=== PATIENT | male | born 1935 | race Caucasian/White ===

== ENCOUNTER 2018-12-31 12:17 | Observation (INO) ==
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
[2018-12-31 12:38] LABS: Hematocrit 43.1 % (37.5-50.1); Hemoglobin 13.6 g/dL (12.9-16.9); Mean Corpuscular HGB Conc 31.6 g/dL (31.6-35.5); Mean Corpuscular Volume 88.9 fL (83.0-100.0); Platelet Count 221 K/mcL (140-400); Red Blood Count 4.85 M/mcL (4.19-5.50); White Blood Count 9.2 K/mcL (4.3-11.1)
[2018-12-31 12:46] LABS: INR 1.6
[2018-12-31 12:49] LABS: Activated Partial Thrombo Time 44.3 Seconds (26.0-36.0)
[2018-12-31 13:01] LABS: Alanine Aminotransferase 14 Units/L (7-52); Albumin 3.9 g/dL (3.5-5.7); Albumin/Globulin Ratio 1.4 (1.1-2.2); Alkaline Phosphatase 72 Units/L (34-104); Aspartate Amino Transferase 20 Units/L (13-39); BUN/Creatinine Ratio 18 (6-26); Bilirubin,Direct 0.1 mg/dL (0.0-0.2); Bilirubin,Indirect 0.4 mg/dL (0.0-1.2); Bilirubin,Total 0.5 mg/dL (0.3-1.0); Blood Urea Nitrogen 32 mg/dL (8-23); Calcium 9.3 mg/dL (8.6-10.3); Carbon Dioxide 27 mEq/L (23-29); Chloride 103 mEq/L (98-107); Globulin 2.7 g/dL (2.4-3.5); Glucose 106 mg/dL (70-105); Osmolality,Calculated 291 (280-300); Potassium 3.9 mEq/L (3.5-5.1); Sodium 137 mEq/L (136-145); Total Protein 6.6 g/dL (6.4-8.9); Troponin I < 0.03 ng/mL (< 0.04); eGFR For African Americans 45 (> 60); eGFR For Non-African Americans 37 (> 60)
[2018-12-31] MEDS ORDERED: Naloxone 0.4 MG/ML INJ IVP PRN (13:43)
[2018-12-31] MEDS ORDERED: traMADol 50 MG TABLET PO PRN (13:43)
[2018-12-31] MEDS ORDERED: Ondansetron 4 MG/2 ML VIAL IVP PRN (13:43)
[2018-12-31] MEDS ORDERED: Acetaminophen 325 MG TABLET PO PRN (13:43)
[2018-12-31] MEDS ORDERED: Mag Hydrox/Al Hydrox/Simeth 30 ML UDC PO PRN (13:43)
[2018-12-31] MEDS ORDERED: MOM Conc 10 ML UD.LIQ PO PRN (13:43)
[2018-12-31] MEDS ORDERED: *HR* Promethazine 25 MG/ML VIAL IVP PRN (13:43)
[2018-12-31 13:46] LABS: Bilirubin,Urine Negative (Negative); Blood,Urine Negative (Negative); Clarity,Urine Clear (Clear); Color,Urine Yellow (Yellow); Glucose,Urine (UA) Normal (Normal); Ketones,Urine Negative (Negative); Leukocyte Esterase,Urine Negative (Negative); Nitrite,Urine Negative (Negative); PH,Urine 5.5 pH Units (5.0-8.0); Protein,Urine 30 mg/dL (Neg-Trace); Specific Gravity,Urine 1.018 (1.010-1.025); Urobilinogen,Urine Normal (Normal)
[2018-12-31 13:49] LABS: Bacteria,Urine None Seen per hpf (None-Few); Hyaline Casts,Urine None Seen per lpf (None-Few); RBC,Urine 0-3 per hpf (0-3); Squamous Epithelial Cell,Urine None Seen per lpf (None-Few); WBC,Urine 0-3 per hpf (0-3)
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
[2019-01-01 01:19] LABS: Basophils % 0.4 %; Eosinophils # 0.1 K/mcL (0.0-0.6); Eosinophils % 1.7 %; Hemoglobin 13.5 g/dL (12.9-16.9); Immature Granulocytes % 0.4 % (0-4); Lymphocytes # 2.6 K/mcL (0.6-4.6); Lymphocytes % 31.2 %; Mean Corpuscular HGB Conc 32.1 g/dL (31.6-35.5); Mean Corpuscular Hemoglobin 28.1 pg (28.0-33.3); Mean Corpuscular Volume 87.3 fL (83.0-100.0); Mean Platelet Volume 9.3 fL (9.4-12.4); Monocytes # 0.8 K/mcL (0.0-1.3); Monocytes % 9.4 %; Neutrophils # 4.8 K/mcL (1.6-8.9); Platelet Count 224 K/mcL (140-400); Red Blood Count 4.81 M/mcL (4.19-5.50); Segmented Neutrophils % 56.9 %; White Blood Count 8.5 K/mcL (4.3-11.1)
[2019-01-01 01:32] LABS: Chol/HDL Ratio 5.8 (0-4.9); Potassium 3.6 mEq/L (3.5-5.1)
--- NOTE | 2019-01-01 06:32 | Electrocardiograph Report ---
[facility] Test Date: 2018-12-31 Pat Name: Henrique Beaulieu Department: EXAM4 Room: 3B45 Gender: M Academic Services Coordinator: : 1935 Requested By: Jake Rainey Order Number: [id number] Reading MD: Derian Keys Measurements Intervals [place] Rate: 73 P: MT: QRS: -48 QRSD: 104 T: 4 QT: 379 QTc: 418 Interpretive Statements Atrial fibrillation Electronically Signed On 01-01-2019 6:31:29 EDT by Derian Keys
[2019-01-01] MEDS ORDERED: Cholecalciferol (D-3) 1,000 UNIT (25MCG) TABLET PO SCH (09:00)
[2019-01-01] MEDS ORDERED: *HR* Rivaroxaban 15 MG TABLET PO SCH (09:00)
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
[2019-01-01] MEDS ORDERED: Aspirin Enteric Coated 325 MG Tablet PO ONE (14:00)
--- NOTE | 2019-01-01 16:25 | EEG/EMG/Oth Biometrics Report ---
EEG Procedure Report Date of procedure: 01/01/19 EEG Procedure: Routine EEG Procedure Note: Report: This EEG was acquired with standard international 10-20 electrode placement system with EKG recording. The Background activity during this EEG was characterized by the presence of posterior dominant alpha rhythm with best frequency up to 8 Hz. The background activity was reactive to eye openings. Sleep stages were not identified during the study There are no electrographic seizures identified during this tracing. There are no epileptiform discharges noted. However, there was intermittent theta/delta slowing at the right hemisphere. Photic stimulation produced no abnormalities. HV not performed during this study. EKG tracing showed no significant cardiac dysarrhythmia. Impression: This is a mildy abnormal EEG due to presence of intermittent focal slowing at the right hemisphere. Clinical Correlation: This EEG is consistent with focal neuronal dysfunction at the right hemisphere. This pattern can be seen in patients with focal cerebral structure abnormalities or less likely as a postictal phenomenon from a partial seizure disorder. Please correlate imaging studies or vascular studies clinically
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
[2019-01-01 18:28] VITALS: BP 142/89
[2019-01-02] MEDS ORDERED: Aspirin Enteric Coated 81 MG Tablet PO SCH (09:00)
== END 2019-01-01 18:49 | disposition home or self-care (01) ==
LOC: 3BNU 12:17 → EMEROOARM 12:17 → 3BNU 15:15
PROVIDERS: ADMIT Student in an Organized Health Care Education/Training Program; ATTEND Student in an Organized Health Care Education/Training Program

== ENCOUNTER 2019-01-04 10:49 | Inpatient (IN) ==
--- NOTE | 2019-01-04 11:12 | Emergency Department Note ---
Disposition Clinical Impression: TIA (transient ischemic attack) CKD (chronic kidney disease) Qualifiers: Chronic kidney disease stage: stage 3 (moderate) Qualified Code(s): N18.3 - Chronic kidney disease, stage 3 (moderate) Carotid stenosis Qualifiers: Laterality: right Qualified Code(s): I65.21 - Occlusion and stenosis of right carotid artery Disposition: Admitted As Inpatient Condition: Fair Forms: ED Satisfaction Letter Time of Disposition: 14:16 General Adult HPI - General Chief complaint: ED Neuro Symptoms/Deficit Stated complaint: confusion Time Seen by Provider: 01/04/19 10:50 Source: patient, family, EMS Mode of arrival: EMS Limitations: no limitations Nursing Notes Reviewed: Yes Vital Signs Reviewed: Yes - History of Present Illness HPI Narrative: Patient is an 83-year-old male that presents emergency department for TIA-like symptoms. Family states that he has had a previous workup for TIA symptoms and was told that he has a 90% blockage in his right carotid artery. They state ayush t they were told that if anything changed to come into the reevaluated. Family states that approximately 9:30 to 10:00 this morning he had symptoms similar to his previous TIA where he had some garbled speech and numbness in his right arm and leg. He states that this is all completely resolved. They also stated that he had some intermittent confusion associated with this. Patient states that he feels significantly better and back to his baseline. Patient's at bedside states that he seems completely normal at this time. Symptoms lasted approximately 30 minutes to an hour. Pain Scale: 0 - Related Data Home Medications Medication Instructions Recorded Confirmed Losartan [Cozaar] 100 mg PO QPM 01/19/15 01/04/19 Cholecalciferol (Vitamin D3) 4,000 unit PO QAM 09/19/18 01/04/19 [Vitamin D3] Omeprazole Magnesium [Prilosec Otc] 20 mg PO QAM 09/19/18 01/04/19 Rivaroxaban [Xarelto] 15 mg PO QPM 09/19/18 01/04/19 Carvedilol [Coreg] 25 mg PO BID 12/31/18 01/04/19 Gabapentin [Neurontin] 100 mg PO BID 12/31/18 01/04/19 amLODIPine [Norvasc] 10 mg PO DAILY 12/31/18 01/04/19 Previous Rx's Medication Instructions Recorded Aspirin Enteric Coated [Aspirin EC] 81 mg PO DAILY #30 tablet. 01/01/19 Atorvastatin [Lipitor] 80 mg PO HS #60 tablet 01/01/19 Allergies Allergy/AdvReac Type Severity Reaction Status Date / Time No Known Allergies Allergy Verified 12/31/18 16:54 All systems ED: reviewed and negative except as stated. Constitutional: Denies: fever Cardiovascular: Denies: chest pain Respiratory: Denies: dyspnea Gastrointestinal: Denies: abdominal pain Neurological: Reports: weakness, numbness, confusion. Denies: paresthesias Past Medical History - Past Medical History Medical history: Reports: arthritis, atrial fibrillation, GERD, hypertension, renal disease, other Surgical history: Reports: appendectomy Psychiatric history: Reports: no psych history - Social History Smoking Status: Former smoker Smokeless Tobacco Status: No Alcohol use: Reports: none Drug use: Reports: none Physical Exam - General Limitations: no limitations General appearance: alert, in no apparent distress - Head Head exam: atraumatic, normocephalic - Eye Eye exam: Present: normal appearance, EOMI - Neck Neck exam: Present: normal inspection, full ROM, trachea midline - Respiratory Respiratory exam: Present: normal lung sounds bilaterally. Absent: respiratory distress, wheezes - Cardiovascular Cardiovascular exam: Present: regular rate, normal rhythm, normal heart sounds, +S1, +S2 - Abdominal Exam Abdominal exam: Present: soft, Non-Tender, normal bowel sounds - Neurological Exam Neurological exam: Present: alert, oriented X3 - Expanded Neurological Exam Patient oriented to: Present: person, place, time Speech: Present: fluid speech Cranial nerves: EOM function (II, III, IV, ): Normal, facial sensation (V): Normal, facial palsy (VII): Normal, gag reflex (IX): Normal, spinal accessory function (XI): Normal, tongue deviation (XII): Normal Cerebellar function: finger to nose: Normal, heel to quinones: Normal Motor strength - LUE: 5/5 Motor strength - RUE: 5/5 Motor strength - LLE: 5/5 Motor strength - RLE: 5/5 Upper motor neuron exam: pronator drift: Absent bilaterally Sensory exam upper extremity: light touch: Normal Sensory exam lower extremity: light touch: Normal Coma Scale Eye Opening: Spontaneous Coma Scale Motor Response: Obeys Commands Coma Scale Verbal Response: Oriented Coma Scale Total: 15 - Psychiatric Psychiatric exam: Present: normal affect, normal mood - Skin Skin exam: Present: warm, dry, intact Course Vital Signs Temperature 98.2 F 01/04/19 10:50 Pulse Rate 59 01/04/19 10:50 Respiratory Rate 18 01/04/19 10:50 Blood Pressure 126/87 01/04/19 10:50 O2 Sat by Pulse Oximetry 98 01/04/19 10:50 Temperature 98.2 F 01/04/19 10:50 Pulse Rate 59 01/04/19 10:50 Respiratory Rate 18 01/04/19 10:50 Blood Pressure 126/87 01/04/19 10:50 O2 Sat by Pulse Oximetry 98 01/04/19 10:50 Oxygen Delivery Oxygen Delivery Room Air Medical Decision Making - MDM Narrative Medical decision making narrative: Due the patient presenting to the emergency department with reports of TIA-like symptoms that have completely resolved and the patient have an NIH of 0 a stroke alert was not called. The patient will go for a head CT. Laboratory testing w ill be obtained. The patient had recently been admitted to the hospital approximately 3 days ago and had an extensive workup for strokelike symptoms. Patient will likely require readmission due to recurrence of his symptoms and a high-grade stenosis that is noted in his right internal carotid. Called and spoke with the on-call vascular surgeon and he has agreed to see the patient in consult. A consult was placed to vascular surgery. Patient's laboratory testing is at his baseline with a negative head CT. We will admit the patient to the medical service. I spoke with the admitting hospitals Dr. Thomas and she has accepted the patient to their service. Patient be admitted to the [facility] at this time for further evaluation and management. - Medical Records Medical records reviewed: Yes I reviewed the patient's medical records. - Lab Data Lab results reviewed: Yes I reviewed the patient's lab results. Result diagrams: 01/04/19 11:04 01/04/19 11:04 Lab Results 01/04/19 01/04/19 01/04/19 Range/Units 11:04 11:04 11:04 WBC 9.0 (4.3-11.1) K/mcL RBC 4.88 (4.19-5.50) M/mcL Hgb 13.8 (12.9-16.9) g/dL Hct 43.0 (37.5-50.1) % MCV 88.1 (83.0-100.0) fL MCH 28.3 (28.0-33.3) pg MCHC 32.1 (31.6-35.5) g/dL RDW 15.0 H (11.5-14.5) % Plt Count 230 (140-400) K/mcL MPV 9.2 L (9.4-12.4) fL PT 18.5 H (9.4-12.1) Seconds INR 1.6 APTT 42.5 H (26.0-36.0) Seconds Sodium 136 (136-145) mEq/L Potassium 4.0 (3.5-5.1) mEq/L Chloride 106 (98-107) mEq/L Carbon Dioxide 22 L (23-29) mEq/L BUN 21 (8-23) mg/dL Creatinine 1.61 H (0.70-1.30) mg/dL Est GFR ( Amer) 50 L (> 60) Est GFR (Non-Af Amer) 41 L (> 60) BUN/Creatinine Ratio 13 (6-26) Glucose 94 (70-105) mg/dL Calculated Osmolality 285 (280-300) Calcium 9.1 (8.6-10.3) mg/dL Troponin I < 0.03 (< 0.04) ng/mL Urine Color (Yellow) Urine Clarity (Clear) Urine pH (5.0-8.0) pH Units Ur Specific [place] (1.010-1.025) Urine Protein (Neg-Trace) mg/dL Urine Glucose (UA) (Normal) mg/dL Urine Ketones (Negative) mg/dL Urine Blood (Negative) Urine Nitrite (Negative) Urine Bilirubin (Negative) Urine Urobilinogen (Normal) mg/dL Ur Leukocyte Esterase (Negative) Urine Microscopic RBC (0-3) per hpf Urine Microscopic WBC (0-3) per hpf Ur Squamous Epith Cells (None-Few) per lpf Urine Bacteria (None-Few) per hpf Hyaline Casts (None-Few) per lpf Ur Culture Indicated? (NO) 01/04/19 Range/Units 12:22 WBC (4.3-11.1) K/mcL RBC (4.19-5.50) M/mcL Hgb (12.9-16.9) g/dL Hct (37.5-50.1) % MCV (83.0-100.0) fL MCH (28.0-33.3) pg MCHC (31.6-35.5) g/dL RDW (11.5-14.5) % Plt Count (140-400) K/mcL MPV (9.4-12.4) fL PT (9.4-12.1) Seconds INR APTT (26.0-36.0) Seconds Sodium (136-145) mEq/L Potassium (3.5-5.1) mEq/L Chloride (98-107) mEq/L Carbon Dioxide (23-29) mEq/L BUN (8-23) mg/dL Creatinine (0.70-1.30) mg/dL Est GFR ( Amer) (> 60) Est GFR (Non-Af Amer) (> 60) BUN/Creatinine Ratio (6-26) Glucose (70-105) mg/dL Calculated Osmolality (280-300) Calcium (8.6-10.3) mg/dL Troponin I (< 0.04) ng/mL Urine Color Yellow (Yellow) Urine Clarity Clear (Clear) Urine pH 5.5 (5.0-8.0) pH Units Ur Specific [place] 1.016 (1.010-1.025) Urine Protein 100 H (Neg-Trace) mg/dL Urine Glucose (UA) Normal (Normal) mg/dL Urine Ketones Negative (Negative) mg/dL Urine Blood Negative (Negative) Urine Nitrite Negative (Negative) Urine Bilirubin Negative (Negative) Urine Urobilinogen Normal (Normal) mg/dL Ur Leukocyte Esterase Trace H (Negative) Urine Microscopic RBC 0-3 (0-3) per hpf Urine Microscopic WBC 3-5 H (0-3) per hpf Ur Squamous Epith Cells Moderate H (None-Few) per lpf Urine Bacteria None Seen (None-Few) per hpf Hyaline Casts None Seen (None-Few) per lpf Ur Culture Indicated? YES A (NO) - Radiology Data Radiology results reviewed: Yes I reviewed the patient's radiology results. Head CT 01/04/19 11:04 IMPRESSION: No acute intracranial abnormality. D/ / Tyree Sofia MD / Tyree Sofia MD Interpreting Provider: Tyree Sofia MD - EKG Data EKG #1 EKG attestation: Yes I reviewed and interpreted this EKG. EKG results narrative: EKG shows atrial fibrillation at a rate of 54 bpm, curious duration 104, QTc of 358. There is no evidence of STEMI on EKG. This is compared to previous EKG on 12/31/18. Attestation Statement - Attestation Attestation: Silva Benson D.O., examined this patient and my medical decision-making was reviewed with the Resident Physician. I agree with the documented findings, disposition and treatment plan as described except to the extent set forth below. NIH Stroke Scale - Level of Consciousness LOC: Alert - LOC Questions LOC Questions: Answers both correctly - LOC Commands LOC Commands: Performs both correctly - Best Gaze Best Gaze: Normal - Visual Visual: No visual loss - Facial Palsy Facial Palsy: Normal - Motor Arms Motor Arm-Left: No drift for 10 seconds Motor Arm-Right: No drift for 10 seconds - Motor Legs Motor Leg-Left: No drift for 5 seconds Motor Leg-Right: No drift for 5 seconds - Limb Ataxia Limb Ataxia: Normal, No Ataxia - Sensory Sensory: Normal - Best Language Best Language: No aphasia - Dysarthria Dysarthria: Normal - Extinction and Inattention Extinction and Inattention: Normal - NIHSS Total Score NIHSS Total Score: 0
--- NOTE | 2019-01-04 11:36 | Emergency Department Note ---
Disposition Clinical Impression: TIA (transient ischemic attack) CKD (chronic kidney disease) Qualifiers: Chronic kidney disease stage: stage 3 (moderate) Qualified Code(s): N18.3 - Chronic kidney disease, stage 3 (moderate) Carotid stenosis Qualifiers: Laterality: right Qualified Code(s): I65.21 - Occlusion and stenosis of right carotid artery Disposition: Admitted As Inpatient Condition: Fair Referrals: Esteban Moctezuma DO [Primary Care Provider] - Forms: ED Satisfaction Letter Time of Disposition: 14:18 General Adult HPI - General Chief complaint: ED Neuro Symptoms/Deficit Stated complaint: confusion Time Seen by Provider: 01/04/19 10:50 Source: patient, family, EMS Mode of arrival: EMS Limitations: no limitations - History of Present Illness Pain Scale: 0 - Related Data Home Medications Medication Instructions Recorded Confirmed Losartan [Cozaar] 100 mg PO QPM 01/19/15 01/04/19 Cholecalciferol (Vitamin D3) 4,000 unit PO QAM 09/19/18 01/04/19 [Vitamin D3] Omeprazole Magnesium [Prilosec Otc] 20 mg PO QAM 09/19/18 01/04/19 Rivaroxaban [Xarelto] 15 mg PO QPM 09/19/18 01/04/19 Carvedilol [Coreg] 25 mg PO BID 12/31/18 01/04/19 Gabapentin [Neurontin] 100 mg PO BID 12/31/18 01/04/19 amLODIPine [Norvasc] 10 mg PO DAILY 12/31/18 01/04/19 Previous Rx's Medication Instructions Recorded Aspirin Enteric Coated [Aspirin EC] 81 mg PO DAILY #30 tablet. 01/01/19 Atorvastatin [Lipitor] 80 mg PO HS #60 tablet 01/01/19 Allergies Allergy/AdvReac Type Severity Reaction Status Date / Time No Known Allergies Allergy Verified 12/31/18 16:54 Constitutional: Denies: fever Cardiovascular: Denies: chest pain Respiratory: Denies: dyspnea Gastrointestinal: Denies: abdominal pain Neurological: Reports: weakness, numbness, confusion. Denies: paresthesias Past Medical History - Past Medical History Medical history: Reports: arthritis, atrial fibrillation, GERD, hypertension, renal disease, other Surgical history: Reports: appendectomy Psychiatric history: Reports: no psych history - Social History Smoking Status: Former smoker Smokeless Tobacco Status: No Alcohol use: Reports: none Drug use: Reports: none Physical Exam - General Limitations: no limitations General appearance: alert, in no apparent distress Course Vital Signs Temperature 98.2 F 01/04/19 10:50 Pulse Rate 59 01/04/19 10:50 Respiratory Rate 18 01/04/19 10:50 Blood Pressure 126/87 01/04/19 10:50 O2 Sat by Pulse Oximetry 98 01/04/19 10:50 Temperature 98.2 F 01/04/19 10:50 Pulse Rate 59 01/04/19 10:50 Respiratory Rate 18 01/04/19 10:50 Blood Pressure 126/87 01/04/19 10:50 O2 Sat by Pulse Oximetry 98 01/04/19 10:50 Oxygen Delivery Oxygen Delivery Room Air Medical Decision Making - Lab Data Result diagrams: 01/04/19 11:04 01/04/19 11:04 Lab Results 01/04/19 01/04/19 01/04/19 Range/Units 11:04 11:04 11:04 WBC 9.0 (4.3-11.1) K/mcL RBC 4.88 (4.19-5.50) M/mcL Hgb 13.8 (12.9-16.9) g/dL Hct 43.0 (37.5-50.1) % MCV 88.1 (83.0-100.0) fL MCH 28.3 (28.0-33.3) pg MCHC 32.1 (31.6-35.5) g/dL RDW 15.0 H (11.5-14.5) % Plt Count 230 (140-400) K/mcL MPV 9.2 L (9.4-12.4) fL PT 18.5 H (9.4-12.1) Seconds INR 1.6 APTT 42.5 H (26.0-36.0) Seconds Sodium 136 (136-145) mEq/L Potassium 4.0 (3.5-5.1) mEq/L Chloride 106 (98-107) mEq/L Carbon Dioxide 22 L (23-29) mEq/L BUN 21 (8-23) mg/dL Creatinine 1.61 H (0.70-1.30) mg/dL Est GFR ( Amer) 50 L (> 60) Est GFR (Non-Af Amer) 41 L (> 60) BUN/Creatinine Ratio 13 (6-26) Glucose 94 (70-105) mg/dL Calculated Osmolality 285 (280-300) Calcium 9.1 (8.6-10.3) mg/dL Troponin I < 0.03 (< 0.04) ng/mL Urine Color (Yellow) Urine Clarity (Clear) Urine pH (5.0-8.0) pH Units Ur Specific [place]ell (1.010-1.025) Urine Protein (Neg-Trace) mg/dL Urine Glucose (UA) (Normal) mg/dL Urine Ketones (Negative) mg/dL Urine Blood (Negative) Urine Nitrite (Negative) Urine Bilirubin (Negative) Urine Urobilinogen (Normal) mg/dL Ur Leukocyte Esterase (Negative) Urine Microscopic RBC (0-3) per hpf Urine Microscopic WBC (0-3) per hpf Ur Squamous Epith Cells (None-Few) per lpf Urine Bacteria (None-Few) per hpf Hyaline Casts (None-Few) per lpf Ur Culture Indicated? (NO) 01/04/19 Range/Units 12:22 WBC (4.3-11.1) K/mcL RBC (4.19-5.50) M/mcL Hgb (12.9-16.9) g/dL Hct (37.5-50.1) % MCV (83.0-100.0) fL MCH (28.0-33.3) pg MCHC (31.6-35.5) g/dL RDW (11.5-14.5) % Plt Count (140-400) K/mcL MPV (9.4-12.4) fL PT (9.4-12.1) Seconds INR APTT (26.0-36.0) Seconds Sodium (136-145) mEq/L Potassium (3.5-5.1) mEq/L Chloride (98-107) mEq/L Carbon Dioxide (23-29) mEq/L BUN (8-23) mg/dL Creatinine (0.70-1.30) mg/dL Est GFR ( Amer) (> 60) Est GFR (Non-Af Amer) (> 60) BUN/Creatinine Ratio (6-26) Glucose (70-105) mg/dL Calculated Osmolality (280-300) Calcium (8.6-10.3) mg/dL Troponin I (< 0.04) ng/mL Urine Color Yellow (Yellow) Urine Clarity Clear (Clear) Urine pH 5.5 (5.0-8.0) pH Units Ur Specific [place]ell 1.016 (1.010-1.025) Urine Protein 100 H (Neg-Trace) mg/dL Urine Glucose (UA) Normal (Normal) mg/dL Urine Ketones Negative (Negative) mg/dL Urine Blood Negative (Negative) Urine Nitrite Negative (Negative) Urine Bilirubin Negative (Negative) Urine Urobilinogen Normal (Normal) mg/dL Ur Leukocyte Esterase Trace H (Negative) Urine Microscopic RBC 0-3 (0-3) per hpf Urine Microscopic WBC 3-5 H (0-3) per hpf Ur Squamous Epith Cells Moderate H (None-Few) per lpf Urine Bacteria None Seen (None-Few) per hpf Hyaline Casts None Seen (None-Few) per lpf Ur Culture Indicated? YES A (NO) Attestation Statement - Attestation Attestation: Silva Benson D.O., examined this patient and my medical decision-making was reviewed with the Resident Physician. I agree with the documented findings, disposition and treatment plan as described except to the extent set forth below. 83-year-old male presenting with concern for TIA symptoms. He was recently admitted and had a full evaluation and discharged home. They found some stenosis at that time. He presents again today complaints that for approximately 15 minutes his speech was abnormal with facial droop as well as numbness in his right arm and right leg. The symptoms resolved prior to arrival and have not returned. Denies a prior history of CVA. No recent illnesses. Feels at baseline at this time. No other complaints. General: Alert, no acute distress HENT: Normocephalic, Atraumatic Neck: No JVD Cardiovascular: Regular rate and rhythm. No appreciable murmurs Respiratory: Lungs CTAB. No wheezing/rhonchi Abdominal: Soft, non tender. No peritoneal findings Extremities: No peripheral edema Neuro: Alert, Mentating appropriately, No focal deficits. Cranial nerves II through XII grossly intact. He has equal motor strength in the upper and lower extremities. Sensation to light touch intact in the upper and lower extremitie s. Skin: Warm, Dry Plan: Repeat head CT, EKG, labs and likely admission for neuro checks given his transient neurologic deficits. ED Procedure Note: EKG interpretation - I agree with the resident physician's documentation and interpretation of the patient's EKG. Atrial fibrillation with a rate of 54 beats or minute. Left axis deviation. Normal intervals. No gross ST elevations or depressions. No acute ischemic findings. Imaging labs reviewed. No gross abnormalities. The patient will be admitted for neuro checks. At the request of the hospitalist the vascular surgeon was consulted and will see the patient in consultation given his prior atherosclerosis.
[2019-01-04 12:09] LABS: Hemoglobin 13.8 g/dL (12.9-16.9); Mean Corpuscular HGB Conc 32.1 g/dL (31.6-35.5); Mean Corpuscular Hemoglobin 28.3 pg (28.0-33.3); Mean Corpuscular Volume 88.1 fL (83.0-100.0); Mean Platelet Volume 9.2 fL (9.4-12.4); Platelet Count 230 K/mcL (140-400); Red Blood Count 4.88 M/mcL (4.19-5.50)
[2019-01-04 12:17] LABS: INR 1.6; Prothrombin Time 18.5 Seconds (9.4-12.1)
[2019-01-04 12:20] LABS: Activated Partial Thrombo Time 42.5 Seconds (26.0-36.0)
[2019-01-04 12:21] LABS: BUN/Creatinine Ratio 13 (6-26); Blood Urea Nitrogen 21 mg/dL (8-23); Calcium 9.1 mg/dL (8.6-10.3); Carbon Dioxide 22 mEq/L (23-29); Chloride 106 mEq/L (98-107); Glucose 94 mg/dL (70-105); Osmolality,Calculated 285 (280-300); Sodium 136 mEq/L (136-145); Troponin I < 0.03 ng/mL (< 0.04); eGFR For African Americans 50 (> 60); eGFR For Non-African Americans 41 (> 60)
[2019-01-04 12:40] LABS: Bilirubin,Urine Negative (Negative); Blood,Urine Negative (Negative); Clarity,Urine Clear (Clear); Color,Urine Yellow (Yellow); Glucose,Urine (UA) Normal (Normal); Ketones,Urine Negative (Negative); Leukocyte Esterase,Urine Trace (Negative); Nitrite,Urine Negative (Negative); PH,Urine 5.5 pH Units (5.0-8.0); Protein,Urine 100 mg/dL (Neg-Trace); Specific Gravity,Urine 1.016 (1.010-1.025); Urobilinogen,Urine Normal (Normal)
[2019-01-04 12:42] LABS: Bacteria,Urine None Seen per hpf (None-Few); Hyaline Casts,Urine None Seen per lpf (None-Few); RBC,Urine 0-3 per hpf (0-3); Squamous Epithelial Cell,Urine Moderate per lpf (None-Few)
[2019-01-04] MEDS ORDERED: Mag Hydrox/Al Hydrox/Simeth 30 ML UDC PO PRN (15:17)
[2019-01-04] MEDS ORDERED: Ondansetron 4 MG/2 ML VIAL IVP PRN (15:17)
[2019-01-04] MEDS ORDERED: MOM Conc 10 ML UD.LIQ PO PRN (15:17)
[2019-01-04] MEDS ORDERED: *HR* Promethazine 25 MG/ML VIAL IVP PRN (15:17)
[2019-01-04] MEDS ORDERED: traMADol 50 MG TABLET PO PRN (15:17)
[2019-01-04] MEDS ORDERED: Acetaminophen 325 MG TABLET PO PRN (15:17)
[2019-01-04] MEDS ORDERED: Naloxone 0.4 MG/ML INJ IVP PRN (15:17)
--- NOTE | 2019-01-04 15:25 | Internal Med History&Physical ---
Date of Encounter: 01/04/19 Time of Encounter: 15:40 Internal Medicine - H&P: HPI Admitted From: Home Plans for Post Hospital Care: Home History of present illness: Mr. Beaulieu is a 83 year old male with past medical history of hypertension, hyperlipidemia, chronic atrial fibrillation, chronic kidney disease, and recently diagnosed severe right-sided carotid stenosis resulting in TIA symptoms or present to the ED with transient aphasia, slurred speech, and left-sided weakness and numbness. Patient was admitted 4 days ago for TIA symptoms, at that point neurological workup revealed 80-99% stenosis of the right ICA, MRI of brain no acute CVA. Vascular surgery was consult it, recommended outpatient angiogram and a possible right-sided carotid endarterectomy. Patient was discharged 3 days ago, aspirin and statins were prescribed. Patient and family reported this morning he suddenly developed slurred speech associated with left- sided weakness and numbness. The symptoms lasted about 15 minutes ago and resolved. By the time patient arrival to the ED, neurologic exam were normal. Vascular surgery was consulted again, patient will be admitted for further evaluation and management. CODE STATUS will be full cold. Past Med Surg Social Fam HX - Past Medical History Medical history: arthritis, atrial fibrillation, GERD, hypertension, renal disease, other Additional medical history: STAGE 3 CKD. BELLS PALSY. BPH Psychiatric history: no psych history - Past Surgical History Surgical History: appendectomy Additional surgical history: spinal surgery - Social History Smoking Status: Former smoker Smokeless Tobacco Status: No Alcohol use: none Drug use: none - Family History Mother Adopted: No Family Member Ethnicity: Non- Living Status: Hx Family Neuromuscular Disorders: Yes (BELLS PALSY) Internal Medicine - H&P: Meds Losartan [Cozaar] 100 mg PO QPM 01/19/15 [History] Cholecalciferol (Vitamin D3) [Vitamin D3] 4,000 unit PO QAM 09/19/18 [History] Omeprazole Magnesium [Prilosec Otc] 20 mg PO QAM 09/19/18 [History] Rivaroxaban [Xarelto] 15 mg PO QPM 09/19/18 [History] Carvedilol [Coreg] 25 mg PO BID 12/31/18 [History] Gabapentin [Neurontin] 100 mg PO BID 12/31/18 [History] amLODIPine [Norvasc] 10 mg PO DAILY 12/31/18 [History] Aspirin Enteric Coated [Aspirin EC] 81 mg PO DAILY #30 tablet. 01/01/19 [Rx] Atorvastatin [Lipitor] 80 mg PO HS #60 tablet 01/01/19 [Rx] Allergy/AdvReac Type Severity Reaction Status Date / Time No Known Allergies Allergy Verified 12/31/18 16:54 All Systems PM: A 10-system review of systems was performed and is negative for pertinent findings except as documented above in the HPI. Review of systems: REVIEW OF SYSTEMS: CONSTITUTIONAL: No weight loss, fever, chills, weakness or fatigue. HEENT: Eyes: No visual loss, blurred vision, double vision or yellow sclerae. Ears, Nose, Throat: No hearing loss, sneezing, congestion, runny nose or sore throat. SKIN: No rash or itching. CARDIOVASCULAR: No chest pain, chest pressure or chest discomfort. No palpitations or edema. RESPIRATORY: No shortness of breath, cough or sputum. GASTROINTESTINAL: No anorexia, nausea, vomiting or diarrhea. No abdominal pain or blood. GENITOURINARY: No dysuria, urgency, or frequency. NEUROLOGICAL: see HPI. MUSCULOSKELETAL: No muscle, back pain, joint pain or stiffness. HEMATOLOGIC: No anemia, bleeding or bruising. LYMPHATICS: No enlarged nodes. No history of splenectomy. PSYCHIATRIC: No history of depression or anxiety. ENDOCRINOLOGIC: No reports of sweating, cold or heat intolerance. No polyuria or polydipsia. - Constitutional Vitals: Temp Pulse Resp BP Pulse Ox 98.2 F 65 17 181/109 99 01/04/19 10:50 01/04/19 14:05 01/04/19 14:56 01/04/19 14:56 01/04/19 14:05 General appearance: Present: A&O X 3 Exam: PHYSICAL EXAMINATION: GENERAL APPEARANCE: The patient is alert, oriented and in no acute distress. HEENT: Head is normocephalic. The sinuses are nontender. Pupils are equal and reactive. The nares are patent. Oropharynx clear without lesions. NECK: Supple without lymphadenopathy. HEART: Regular rate and rhythm. LUNGS: No crackles or wheezes are heard. ABDOMEN: Soft, nontender, nondistended with good bowel sounds heard. Inguinal area is normal. EXTREMITIES: Without cyanosis, clubbing or edema. NEUROLOGICAL: Gross nonfocal. SKIN: Warm and dry without any rash. Internal Med - H&P Results - Labs CBC & Chem 7: 01/04/19 11:04 01/04/19 11:04 Labs: Short CBC 01/04/19 Range/Units 11:04 WBC 9.0 (4.3-11.1) K/mcL Hgb 13.8 (12.9-16.9) g/dL Hct 43.0 (37.5-50.1) % Plt Count 230 (140-400) K/mcL BMP 01/04/19 11:04 Sodium 136 Potassium 4.0 Chloride 106 Carbon Dioxide 22 L BUN 21 Creatinine 1.61 H Glucose 94 Calcium 9.1 Cardiac Enzymes 01/04/19 Range/Units 11:04 Troponin I < 0.03 (< 0.04) ng/mL Urine 01/04/19 Range/Units 12:22 Urine Color Yellow (Yellow) Urine Clarity Clear (Clear) Urine pH 5.5 (5.0-8.0) pH Units Ur Specific [place] 1.016 (1.010-1.025) Urine Protein 100 H (Neg-Trace) mg/dL Urine Glucose (UA) Normal (Normal) mg/dL - Impressions ITS Impressions Head CT 01/04/19 11:04 IMPRESSION: No acute intracranial abnormality. D/ / Tyree Sofia MD / Tyree Sofia MD Interpreting Provider: Tyree Sofia MD - Assessment and Plan (1) TIA (transient ischemic attack) Current Visit: Yes Status: Acute Assessment and plan: TIA symptoms most likely caused by severe stenosis of right ICA. Currently patient neurologically stable and the neuro exam negative. We will continue monitoring neurological symptoms. Vascular surgery consult, recommended right-sided carotid endarterectomy, hold anticoagulation, continue aspirin, started patient on heparin drip. (2) Carotid artery stenosis, symptomatic Current Visit: Yes Status: Acute Assessment and plan: Management same as above. Qualifiers: Laterality: right Qualified Code(s): I65.21 - Occlusion and stenosis of right carotid artery (3) Essential (primary) hypertension Current Visit: No Status: Chronic Assessment and plan: BP controlled, continue home medication. (4) CKD (chronic kidney disease) Current Visit: Yes Status: Acute Assessment and plan: Creatinine at the baseline, avoid nephrotoxic agent, continue monitoring renal function. Qualifiers: Chronic kidney disease stage: stage 3 (moderate) Qualified Code(s): N18.3 - Chronic kidney disease, stage 3 (moderate) (5) Atrial fibrillation Current Visit: No Status: Chronic Assessment and plan: Rate controlled, continue beta aileen. Hold Xarelto, started patient on heparin drip per vascular surgery recommendation. Qualifiers: Atrial fibrillation type: chronic Qualified Code(s): I48.2 - Chronic atrial fibrillation (6) DVT prophylaxis Current Visit: Yes Status: Acute Assessment and plan: Patient on heparin drip. - Time Spent With Patient Total time spent is greater than 50% in coordination of care (as documented) at patient's floor/unit and/or counseling patient: Greater than 35 minutes
--- NOTE | 2019-01-04 15:31 | Vascular/Endovasc Consult Note ---
Date of Encounter: 01/04/19 Time of Encounter: 15:00 Assessment and Plan (1) Carotid artery stenosis, symptomatic Current Visit: Yes Status: Acute The pathophysiology and natural history of carotid stenosis was discussed with the patient and all questions were answered. The patient has a symptomatic right internal carotid artery 80-99% stenosis. The patient has had 2 separate transient ischemic attacks within the last week will anticoagulated. At this time he has no focal neurologic deficits. His carotid duplex reveals an 80-99% stenosis. His MRA reveals a greater than 90% right internal carotid artery stenosis. His recent EEG was abnormal in the right hemisphere. Given these findings a right carotid endarterectomy is recommended. The risks, benefits and alternatives were discussed the patient and his family all questions were answered. He states understanding wishes to proceed. The patient will continue with daily aspirin including on the morning of surgery. Continue to hold his anticoagulation. Recommend an intravenous heparin drip until surgery can be performed tomorrow morning. The patient takes Xarelto in the evening so his heparin will begin this evening. An order for an intravenous heparin drip has been placed. Qualifiers: Qualified Code(s): I65.21 - Occlusion and stenosis of right carotid artery (2) CKD (chronic kidney disease) stage 3, GFR 30-59 ml/min Current Visit: No Status: Chronic (3) TIA (transient ischemic attack) Current Visit: Yes Status: Acute (4) Atrial fibrillation Current Visit: No Status: Chronic The patient is chronically anticoagulated with Xarelto. Xarelto be held at this time due to pending carotid surgery. Qualifiers: Qualified Code(s): I48.2 - Chronic atrial fibrillation (5) Essential (primary) hypertension Current Visit: No Status: Chronic The patient was counseled regarding atherosclerotic risk factor reduction. - History of Present Illness Consult date: 01/04/19 Requesting physician: Sascha Oconnor Consult reason: Symptomatic right internal carotid artery stenosis Chief complaint: Right hemispheric transient ischemic attack History of present illness: Mr. Beaulieu is a 83 year old male with history of carotid stenosis, hypertension, sleep apnea, chronic kidney disease and a fibrillation. The patient presented on 12/31/2018 to [facility] with complaints of a speech defic it. He underwent a carotid duplex which revealed an 80-99% right internal carotid stenosis. He then underwent an MRA which revealed a greater than 90% stenosis of the right internal carotid artery. He also underwent an EEG which revealed focal slowing of the right hemisphere. Neurology noted that this was likely a result of underlying ischemia related to severe right carotid artery stenosis. The patient was ultimately discharged to home due to resolution of the deficit with plans for further evaluation as an outpatient. He will return to the [facility] today with symptoms of left upper extremity paresthesias and weakness. Ports the symptoms resolved spontaneously. The patient has been admitted to the hospitalist service. Vascular surgery was counseled for further evaluation. At the time of examination, the patient is alert and oriented. Denies any active signs of CVA, TIA or amaurosis fugax. He denies chest pain or shortness of breath. Past Med Surg Social Fam HX - Past Medical History Medical history: arthritis, atrial fibrillation, GERD, hypertension, renal disease, other Additional medical history: STAGE 3 CKD. BELLS PALSY. BPH Psychiatric history: no psych history - Past Surgical History Surgical History: appendectomy Additional surgical history: spinal surgery - Social History Smoking Status: Former smoker Smokeless Tobacco Status: No Alcohol use: none Drug use: none - Family History Mother Adopted: No Family Member Ethnicity: Non- Living Status: Hx Family Neuromuscular Disorders: Yes (BELLS PALSY) Father Living Status: Hx Family Respiratory Disorders: Yes Medications and Allergies Losartan [Cozaar] 100 mg PO QPM 01/19/15 [History] Cholecalciferol (Vitamin D3) [Vitamin D3] 4,000 unit PO QAM 09/19/18 [History] Omeprazole Magnesium [Prilosec Otc] 20 mg PO QAM 09/19/18 [History] Rivaroxaban [Xarelto] 15 mg PO QPM 09/19/18 [History] Carvedilol [Coreg] 25 mg PO BID 12/31/18 [History] Gabapentin [Neurontin] 100 mg PO BID 12/31/18 [History] amLODIPine [Norvasc] 10 mg PO DAILY 12/31/18 [History] Aspirin Enteric Coated [Aspirin EC] 81 mg PO DAILY #30 tablet. 01/01/19 [Rx] Atorvastatin [Lipitor] 80 mg PO HS #60 tablet 01/01/19 [Rx] Allergy/AdvReac Type Severity Reaction Status Date / Time No Known Allergies Allergy Verified 12/31/18 16:54 All Systems Review: The remainder of the systems were reviewed and are negative Exam Vital Signs, Last 4 Hours Pulse Resp BP Pulse Ox 01/04/19 14:56 17 181/109 01/04/19 14:05 65 17 171/105 99 01/04/19 13:05 68 15 160/100 97 01/04/19 12:05 73 15 138/99 97 General: Present: Conversant, No Apparent Distress HEENT: Present: Pupils equal Neck: Present: Right Carotid bruit. Absent: JVD, Lymphadenopathy, Left Carotid bruit Cardiac: Present: Irregular Rhythm Lungs: Present: Normal Breath Sounds, No Wheeze, Rales, Rhonchi Neuro: Present: Alert and responsive, No focal deficits noted, Cranial nerves grossly intact, Motor nerves grossly intact, Sensory nerves grossly intact Abdomen: Present: Soft, Non-tender. Absent: Masses Vascular: Present: Normal capillary refill. Absent: Cyanosis, Edema Skin: Present: No rashes noted on visualized skin Consult Discharge Plan - Plan Referrals: Esteban Moctezuma DO [Primary Care Provider] -
[2019-01-04 16:52] LABS: Hematocrit 44.6 % (37.5-50.1); Hemoglobin 14.2 g/dL (12.9-16.9); Mean Corpuscular HGB Conc 31.8 g/dL (31.6-35.5); Mean Corpuscular Hemoglobin 28.7 pg (28.0-33.3); Mean Corpuscular Volume 90.3 fL (83.0-100.0); Mean Platelet Volume 8.9 fL (9.4-12.4); Platelet Count 218 K/mcL (140-400); Red Blood Count 4.94 M/mcL (4.19-5.50); White Blood Count 8.5 K/mcL (4.3-11.1)
[2019-01-04 17:19] LABS: Heparin anti-factor XA UFH 0.49 IU/mL (0.30-0.70)
[2019-01-04 17:20] LABS: INR 1.5; Prothrombin Time 16.7 Seconds (9.4-12.1)
[2019-01-04] MEDS ORDERED: *HR* Rivaroxaban 15 MG TABLET PO SCH (18:00)
[2019-01-04] MEDS ORDERED: *HR* Heparin 5,000 UNIT/ML VIAL IVP PRN ×2 (18:00)
[2019-01-04] MEDS ORDERED: *HR* Heparin 5,000 UNIT/ML VIAL IVP ONE (18:00)
[2019-01-04] MEDS ORDERED: Heparin 25,000 UNIT/250 ML D5W 25,000 UNIT/250 ML IV.SOLN IVC SCH (18:00)
[2019-01-04] MEDS: Gabapentin 100 MG CAPSULE PO SCH (19:53)
[2019-01-05 00:57] LABS: Basophils % 0.3 %; Eosinophils # 0.2 K/mcL (0.0-0.6); Eosinophils % 1.8 %; Hematocrit 42.9 % (37.5-50.1); Hemoglobin 13.7 g/dL (12.9-16.9); Immature Granulocytes % 0.4 % (0-4); Lymphocytes # 3.2 K/mcL (0.6-4.6); Mean Corpuscular HGB Conc 31.9 g/dL (31.6-35.5); Mean Corpuscular Hemoglobin 28.5 pg (28.0-33.3); Mean Corpuscular Volume 89.2 fL (83.0-100.0); Mean Platelet Volume 9.1 fL (9.4-12.4); Monocytes # 0.7 K/mcL (0.0-1.3); Monocytes % 7.4 %; Neutrophils # 5.6 K/mcL (1.6-8.9); Platelet Count 212 K/mcL (140-400); Red Blood Count 4.81 M/mcL (4.19-5.50); Segmented Neutrophils % 57.1 %; White Blood Count 9.8 K/mcL (4.3-11.1)
[2019-01-05 01:15] LABS: Potassium 3.7 mEq/L (3.5-5.1)
[2019-01-05] MEDS: Gabapentin 100 MG CAPSULE PO SCH ×2 (08:16→20:10)
[2019-01-05] MEDS ORDERED: Cholecalciferol (D-3) 1,000 UNIT (25MCG) TABLET PO SCH (09:00)
[2019-01-05] MEDS ORDERED: Aspirin Enteric Coated 81 MG Tablet PO SCH (09:00)
[2019-01-05] MEDS ORDERED: Vancomycin 1,000 MG, Sodium Chloride IRRigation 1,000 ML IR ONE (09:00)
[2019-01-05] MEDS ORDERED: amLODIPine 5 MG TABLET PO SCH (09:00)
--- NOTE | 2019-01-05 10:27 | Anesthesia Evaluation PreOp ---
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 History: TIA, Other (Lion's Palsy) Other Medical History: Renal (CKD Stage 3), GERD Anesthesia History: No Prior Anesthetic Complications Alcohol Use: none Drug use: none Medications and Allergies Losartan [Cozaar] 100 mg PO QPM 01/19/15 [History] Cholecalciferol (Vitamin D3) [Vitamin D3] 4,000 unit PO QAM 09/19/18 [History] Omeprazole Magnesium [Prilosec Otc] 20 mg PO QAM 09/19/18 [History] Rivaroxaban [Xarelto] 15 mg PO QPM 09/19/18 [History] Carvedilol [Coreg] 25 mg PO BID 12/31/18 [History] Gabapentin [Neurontin] 100 mg PO BID 12/31/18 [History] amLODIPine [Norvasc] 10 mg PO DAILY 12/31/18 [History] Aspirin Enteric Coated [Aspirin EC] 81 mg PO DAILY #30 tablet. 01/01/19 [Rx] Atorvastatin [Lipitor] 80 mg PO HS #60 tablet 01/01/19 [Rx] Allergy/AdvReac Type Severity Reaction Status Date / Time No Known Allergies Allergy Verified 12/31/18 16:54 - Meds/Allergy Pre-op Review Medications Reviewed: Yes Allergies Reviewed: Yes Beta Blockers on Current Med List: Yes (Coreg today) Anesthesia Results - Labs 01/05/19 00:39 01/05/19 00:39 Laboratory Tests 01/04/19 01/04/19 01/05/19 11:04 16:37 00:39 Hgb 13.7 Hct 42.9 Plt Count 212 PT 16.7 H INR 1.5 APTT 42.5 H Sodium Potassium BUN Creatinine 01/05/19 00:39 Hgb Hct Plt Count PT INR APTT Sodium 136 Potassium 3.7 BUN 20 Creatinine 1.54 H - Imaging EKG: report reviewed (AFib) Additional studies: ECHO EF 55%, no pulm htn, no PFO Anesthesia Exam Vital Signs/O2 Sat/Glucose, Most Current Temp Pulse Resp BP Pulse Ox 01/05/19 10:12 97.7 F 66 18 146/103 96 01/05/19 07:56 97.5 F L 70 16 170/90 97 Height: 5'11 Weight: 233 lbs NPO (# of Hours): MN Pain Scale: 0 - HEENT Pupil (Motor): Pupils equal, EOMI Mallampati: III Teeth: Edentulous (no upper dentition) Oral Opening: Less than or equal to 3 - 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
[2019-01-05] MEDS ORDERED: Famotidine 20 MG/2 ML VIAL IVP ONE ×2 (10:32→16:23)
[2019-01-05] MEDS ORDERED: Acetaminophen IV 1,000 MG/100 ML INFUS..BTL IVPB ONE (10:33)
[2019-01-05] MEDS ORDERED: Acetaminophen IV 1,000 MG/100 ML INFUS..BTL ONE (10:39)
[2019-01-05] MEDS ORDERED: Famotidine 20 MG/2 ML VIAL ONE (10:39)
[2019-01-05] MEDS ORDERED: Calcium Gluconate 1,000 MG/10 ML VIAL ONE (10:44)
--- NOTE | 2019-01-05 10:44 | Internal Med Progress Note ---
Hospitalist Progress Note - Encounter Date of Encounter: 01/05/19 Time of Encounter: 10:42 - Subjective Interval History: Mr. Beaulieu is a 83 year old male with past medical history of hypertension, hyperlipidemia, chronic atrial fibrillation, chronic kidney disease, and recently diagnosed severe right-sided carotid stenosis resulting in TIA symptoms or present to the ED with transient aphasia, slurred speech, and left-sided weakness and numbness. Patient was admitted 4 days ago for TIA symptoms, at that point neurological workup revealed 80-99% stenosis of the right ICA, MRI of brain no acute CVA. Vascular surgery was consult it, recommended outpatient angiogram and a possible right-sided carotid endarterectomy. Patient was discharged 3 days ago, aspirin and statins were prescribed. Patient and family reported this morning he suddenly developed slurred speech associated with left- sided weakness and numbness. The symptoms lasted about 15 minutes ago and resolved. By the time patient arrival to the ED, neurologic exam were normal. Vascular surgery was consulted again, patient admitted for further evaluation and management. Patient seen and examined in the room, he reported absence of slow speech, left- sided weakness or numbness. - Exam Vitals: Temp Pulse Resp BP Pulse Ox 97.7 F 66 18 146/103 96 01/05/19 10:12 01/05/19 10:12 01/05/19 10:12 01/05/19 10:12 01/05/19 10:12 Exam: PHYSICAL EXAMINATION: GENERAL APPEARANCE: The patient is alert, oriented and in no acute distress. HEENT: Head is normocephalic. The sinuses are nontender. Pupils are equal and reactive. The nares are patent. Oropharynx clear without lesions. NECK: Supple without lymphadenopathy. HEART: Regular rate and rhythm. LUNGS: No crackles or wheezes are heard. ABDOMEN: Soft, nontender, nondistended with good bowel sounds heard. Inguinal area is normal. EXTREMITIES: Without cyanosis, clubbing or edema. NEUROLOGICAL: Gross nonfocal. SKIN: Warm and dry without any rash. - Assessment and Plan (1) TIA (transient ischemic attack) Current Visit: Yes Status: Acute Assessment and Plan: TIA symptoms most likely caused by severe stenosis of right ICA. Currently patient neurologically stable and the neuro exam negative. continue monitoring neurological symptoms. Vascular surgery consult, recommended to hold anticoagulation, continue aspirin, patient on heparin drip. right-sided carotid endarterectomy today per vascular surgery. (2) Carotid artery stenosis, symptomatic Current Visit: Yes Status: Acute Assessment and Plan: Management same as above. (3) Essential (primary) hypertension Current Visit: No Status: Chronic Assessment and Plan: BP controlled, continue home medication. (4) CKD (chronic kidney disease) Current Visit: Yes Status: Acute Assessment and Plan: Creatinine at the baseline, avoid nephrotoxic agent, continue monitoring renal function. (5) Atrial fibrillation Current Visit: No Status: Chronic Assessment and Plan: Rate controlled, continue beta aileen. Hold Xarelto, patient on heparin drip per vascular surgery recommendation. (6) DVT prophylaxis Current Visit: Yes Status: Acute Assessment and Plan: Patient on heparin drip. - Time Spent with Patient Total time spent is greater than 50% in coordination of care (as documented) at patient's floor/unit and/or counseling patient: Greater than 35 minutes Plan of Care Discussed with: patient Internal Medicine: Result - Labs CBC & Chem 7: 01/05/19 00:39 01/05/19 00:39 Labs: Short CBC 01/04/19 01/04/19 01/05/19 Range/Units 11:04 16:37 00:39 WBC 9.0 8.5 9.8 (4.3-11.1) K/mcL Hgb 13.8 14.2 13.7 (12.9-16.9) g/dL Hct 43.0 44.6 42.9 (37.5-50.1) % Plt Count 230 218 212 (140-400) K/mcL Neutrophils # 5.6 (1.6-8.9) K/mcL BMP 01/04/19 01/05/19 11:04 00:39 Sodium 136 136 Potassium 4.0 3.7 Chloride 106 107 Carbon Dioxide 22 L 21 L BUN 21 20 Creatinine 1.61 H 1.54 H Glucose 94 116 H Calcium 9.1 9.0 Cardiac Enzymes 01/04/19 Range/Units 11:04 Troponin I < 0.03 (< 0.04) ng/mL Urine 01/04/19 Range/Units 12:22 Urine Color Yellow (Yellow) Urine Clarity Clear (Clear) Urine pH 5.5 (5.0-8.0) pH Units Ur Specific [place] 1.016 (1.010-1.025) Urine Protein 100 H (Neg-Trace) mg/dL Urine Glucose (UA) Normal (Normal) mg/dL - ABG Interpretation ABG results: PT/INR, D-dimer PT 16.7 Seconds (9.4-12.1) H 01/04/19 16:37 - Impressions Impressions Head CT 01/04/19 11:04 IMPRESSION: No acute intracranial abnormality. D/ / Tyree Sofia MD / Tyree Sofia MD Interpreting Provider: Tyree Sofia MD Consult Discharge Plan - Plan Referrals: Esteban Moctezuma DO [Primary Care Provider] - (2) Carotid artery stenosis, symptomatic Qualifiers: Laterality: right Qualified Code(s): I65.21 - Occlusion and stenosis of right carotid artery (4) CKD (chronic kidney disease) Qualifiers: Chronic kidney disease stage: stage 3 (moderate) Qualified Code(s): N18.3 - Chronic kidney disease, stage 3 (moderate) (5) Atrial fibrillation Qualifiers: Atrial fibrillation type: chronic Qualified Code(s): I48.2 - Chronic atrial fibrillation
[2019-01-05] MEDS ORDERED: 0.9 % Sodium Chloride 1,000 ML IVC SCH ×2 (10:45→16:23)
[2019-01-05] MEDS ORDERED: Bupivacaine-MPF 0.25% 10 ML VIAL ONE (11:06)
[2019-01-05] MEDS ORDERED: Protamine Sulfate 50 MG/5 ML VIAL IVP ONE (11:06)
[2019-01-05] MEDS ORDERED: Heparin 1,000 UNITS/500 mL 1,000 ML ONE (11:07)
[2019-01-05] MEDS ORDERED: *HR* Propofol 200 MG/20 ML VIAL IVP ONE (11:27)
[2019-01-05] MEDS ORDERED: Heparin 1,000 UNITS/500 mL 0 ML ONE (11:27)
[2019-01-05] MEDS ORDERED: Lidocaine -MPF 2% 2 ML VIAL ONE (11:27)
[2019-01-05] MEDS ORDERED: Ondansetron 4 MG/2 ML VIAL ONE (11:27)
[2019-01-05] MEDS ORDERED: *HR* Succinylcholine 200 MG/10 ML VIAL IVP ONE (11:27)
[2019-01-05] MEDS ORDERED: *HR* FentaNYL (PF) 100 MCG/2 ML VIAL ONE (11:27)
[2019-01-05] MEDS ORDERED: Dexamethasone 4 MG/ML VIAL ONE (11:27)
[2019-01-05] MEDS ORDERED: Lidocaine -MPF 4% 5 ML AMPUL ONE (11:27)
[2019-01-05] MEDS ORDERED: *HR* PHENYLEPHRINE 1,000 MCG/10 ML SYRINGE IVP ONE (11:31)
[2019-01-05] MEDS ORDERED: Vancomycin 1,000 MG VIAL ONE (12:28)
[2019-01-05] MEDS ORDERED: EPHEDrine 50 MG/ML VIAL ONE (12:29)
[2019-01-05] MEDS ORDERED: CEFAZOLIN SODIUM IVP ONE (12:40)
[2019-01-05] MEDS ORDERED: WATER FOR INJ IVP ONE (12:40)
[2019-01-05] MEDS ORDERED: *HR* Heparin 5,000 UNIT/ML VIAL ONE ×2 (13:18→14:04)
[2019-01-05] MEDS ORDERED: *HR* Remifentanil 2 MG VIAL IVP ONE (13:38)
[2019-01-05] MEDS ORDERED: Neostigmine Methylsulfate 3 MG/3 ML SYRINGE ONE (13:38)
[2019-01-05] MEDS ORDERED: *HR* Phenylephrine 10 MG/ML VIAL ONE (13:39)
[2019-01-05] MEDS ORDERED: Morphine Sulfate 2 MG/ML SYRINGE IVP PRN (15:35)
[2019-01-05] MEDS ORDERED: Ondansetron 4 MG/2 ML VIAL IVP ONE (15:35)
[2019-01-05] MEDS ORDERED: *HR* Labetalol 20 MG/4 ML SYRINGE IVP PRN ×2 (15:36→16:23)
--- NOTE | 2019-01-05 16:06 | Operative Note ---
Date of procedure: 01/05/19 Pre-op diagnosis: Symptomatic 80-99% right intrnal carotid artery stenosis Post-op diagnosis: same Procedure: Right carotid endarterectomy with hemashiled patch angioplasty. Complications: None Surgeon: Leonard Goodwin Was there an veterinary technician assistant present: No Estimated blood loss (cc): 50 Specimen: Right carotid plaque Condition: stable Disposition: PACU Procedure in Detail: Indications: The patient is an 83-year-old male with a history of atrial fibri llation, hypertension, chronic kidney disease and carotid stenosis. The patient had sustained multiple right hemispheric transient ischemic attacks over the last week. He is found have an 80-99% carotid stenosis by carotid duplex and a greater than 90% stenosis by MRA. He had an abnormal right hemispheric EEG. Right carotid endarterectomy was recommended to reduce his risk of cerebrovascular accident. Procedure: The patient was identified in the preoperative area. The risks, benefits, and alternatives of the procedure were discussed and all questions were answered. The patient was then taken to the operating room and placed in supine position on the operating table. After the induction of general endotracheal anesthesia, the patient was cleaned and draped in normal sterile fashion. A longitudinal incision was made anterior to the sternocleidomastoid muscle. Hemostasis was obtained via electrocautery. Through a process of blunt, sharp, and electrocautery dissection, the platysma was traversed and the jugular vein was identified. The facial vein was dissected, clamped, divided and ligated with a 2-0 silk suture ligature. The jugular vein was retracted to expose the carotid bifurcation. The patient received 3000 units of heparin intravenously at this time. Proximal dissection of the common and external carotid arteries were performed circumferentially. Dissection of the internal carotid was performed circumferentially. This required dissection under the digastric muscle. Vessels loops were passed around the internal and external carotid and an umbilical tape was passed from the common carotid artery. The patient received an additional 2000 units of heparin intravenously. Additional heparin was given throughout the case to maintain adequate anticoagulation. After waiting adequate time for the heparin to circulate, the vessels were occluded and a longitudinal arteriotomy was made into the common carotid artery and extended into the internal carotid beyond the plaque. The plaque was long, extended distally and was heavily calcified. Vigorous pulsatile retrograde flow was noted from the internal carotid artery upon release of the vessel loop. Due to the rapid pulsatile retrograde flow, no shunt was placed. A dental [place] was then used to perform a standard endarterectomy. Proximal and distal endpoints were inspected. No elevated flaps were noted. A Hemashield patch was cut to fit the defect and sutured in place with running 6-0 Prolene. Prior to completing the closure, each vessel was flushed and then reoccluded. Heparinized saline was infused into the lumen. The patch was completed. Flow was restored in the external carotid artery, followed the common carotid artery, lastly the internal carotid artery was opened. A low resistance arterialized signal was present within the internal carotid artery beyond the patch. Thrombin and Gelfoam were used to aid in hemostasis. Meticulous hemostasis was obtained throughout the wound with electrocautery. Platelet rich and platelet poor plasma were infused into the wounds. The sternocleidomastoid was reapproximated with interrupted 3-0 Vicryl. Platelet rich and platelet poor plasma were infused into the wound. A TLS drain was brought through a separate stab incision and sutured in place with 0 silk suture. The platysma was reapproximated with running 3-0 Vicryl. Local anesthetic was infused in the skin. A 3-0 Monocryl was used to reapproximate the skin. A sterile dressing was applied. The patient was extubated, taken to the recovery room in stable condition.
[2019-01-05] MEDS ORDERED: *HR* OxyCODONE Immed Rel 5 MG TABLET PO SCH (16:23)
[2019-01-05] MEDS ORDERED: *HR* Metoprolol 5 MG/5 ML VIAL IVP SCH (16:23)
[2019-01-05] MEDS ORDERED: Mag Hydrox/Al Hydrox/Simeth 30 ML UDC PO PRN (16:23)
[2019-01-05] MEDS ORDERED: Acetaminophen 325 MG TABLET PO PRN (16:23)
[2019-01-05] MEDS ORDERED: Naloxone 0.4 MG/ML INJ IVP PRN ×2 (16:23)
[2019-01-05] MEDS ORDERED: *HR* HYDROcodone/Acet 5/325 mg TABLET PO PRN (16:23)
[2019-01-05] MEDS ORDERED: MOM Conc 10 ML UD.LIQ PO PRN (16:23)
[2019-01-05] MEDS ORDERED: *HR* Promethazine 25 MG/ML VIAL IVP PRN (16:23)
[2019-01-05 16:55] LABS: Basophils % 0.2 %; Eosinophils % 0.2 %; Hematocrit 45.1 % (37.5-50.1); Hemoglobin 14.5 g/dL (12.9-16.9); Immature Granulocytes % 0.6 % (0-4); Lymphocytes # 1.4 K/mcL (0.6-4.6); Lymphocytes % 14.9 %; Mean Corpuscular HGB Conc 32.2 g/dL (31.6-35.5); Mean Corpuscular Hemoglobin 28.4 pg (28.0-33.3); Mean Corpuscular Volume 88.3 fL (83.0-100.0); Mean Platelet Volume 8.9 fL (9.4-12.4); Monocytes # 0.2 K/mcL (0.0-1.3); Monocytes % 1.5 %; Platelet Count 229 K/mcL (140-400); Red Blood Count 5.11 M/mcL (4.19-5.50); Red Cell Distribution Width 15.2 % (11.5-14.5); Segmented Neutrophils % 82.6 %; White Blood Count 9.7 K/mcL (4.3-11.1)
--- NOTE | 2019-01-05 19:21 | Anesthesia Evaluation Post Op ---
Date of Encounter: 01/05/19 Time of Encounter: 16:00 - Vital Signs Vital Signs: Vital Signs/O2 Sat/Glucose, Most Current Temp Pulse Resp BP Pulse Ox 01/05/19 18:30 87 18 134/95 95 01/05/19 18:00 85 18 142/93 93 01/05/19 17:30 79 16 180/113 95 01/05/19 17:00 73 18 166/109 93 01/05/19 16:45 72 16 154/93 94 01/05/19 16:31 97.6 F 69 16 167/96 95 01/05/19 16:16 97.6 F 72 18 161/98 94 01/05/19 16:15 97.6 F 68 15 161/98 94 01/05/19 15:59 97.8 F 77 14 144/97 94 01/05/19 15:49 97.8 F 70 17 153/98 95 01/05/19 15:39 67 16 144/97 94 01/05/19 15:29 75 15 146/90 95 - Lungs Lungs: Clear Ascult./Percussion - Airway Airway: Non-obstructed - Cardiovascular Regular Rate - Mental Status Mental Status: Alert & Oriented, Answers Appropriately - Pain Pain Scale: 0 - Nausea Vomiting Nausea Vomiting: Not Present - Hydration Hydration: Ice chips - Discharge PostOp Status: Transfer Patient to floor
[2019-01-05] MEDS: *HR* Metoprolol 5 MG/5 ML VIAL IVP SCH (19:37)
[2019-01-05] MEDS ORDERED: *HR* OxyCODONE Immed Rel 5 MG TABLET PO PRN (19:52)
[2019-01-06] MEDS: *HR* Metoprolol 5 MG/5 ML VIAL IVP SCH ×3 (00:13→11:53)
[2019-01-06 01:42] LABS: Basophils % 0.2 %; Hemoglobin 13.3 g/dL (12.9-16.9); Immature Granulocytes % 0.3 % (0-4); Lymphocytes # 1.4 K/mcL (0.6-4.6); Mean Corpuscular HGB Conc 31.7 g/dL (31.6-35.5); Mean Corpuscular Hemoglobin 27.7 pg (28.0-33.3); Mean Corpuscular Volume 87.5 fL (83.0-100.0); Mean Platelet Volume 9.1 fL (9.4-12.4); Monocytes # 0.4 K/mcL (0.0-1.3); Monocytes % 3.2 %; Neutrophils # 9.8 K/mcL (1.6-8.9); Platelet Count 219 K/mcL (140-400); Segmented Neutrophils % 84.3 %; White Blood Count 11.6 K/mcL (4.3-11.1)
[2019-01-06 02:01] LABS: Calcium 8.5 mg/dL (8.6-10.3); Potassium 4.1 mEq/L (3.5-5.1)
[2019-01-06] MEDS ORDERED: *HR* Heparin 5,000 UNIT/ML VIAL SQ SCH ×2 (06:00)
[2019-01-06] MEDS: Gabapentin 100 MG CAPSULE PO SCH (08:36)
[2019-01-06] MEDS ORDERED: amLODIPine 5 MG TABLET PO SCH (09:00)
[2019-01-06] MEDS ORDERED: Cholecalciferol (D-3) 1,000 UNIT (25MCG) TABLET PO SCH (09:00)
[2019-01-06] MEDS ORDERED: Aspirin Enteric Coated 81 MG Tablet PO SCH (09:00)
--- NOTE | 2019-01-06 10:45 | Vascular/[facility] Progress Note ---
Date of Encounter: 01/06/19 Time of Encounter: 08:00 - Assessment and plan (1) Carotid artery stenosis, symptomatic Current Visit: Yes Status: Acute The patient is postoperative day #1 after a right carotid artery. He is neurovascularly intact. His incision is healing well. His white blood cell count is elevated but this is likely reactive postoperatively. The patient may be discharged from a vascular standpoint. He will follow-up in vascular clinic in 2-3 weeks for further evaluation. He may resume his anticoagulation today. Qualifiers: Laterality: right Qualified Code(s): I65.21 - Occlusion and stenosis of right carotid artery (2) CKD (chronic kidney disease) stage 3, GFR 30-59 ml/min Current Visit: No Status: Chronic (3) TIA (transient ischemic attack) Current Visit: Yes Status: Acute (4) Atrial fibrillation Current Visit: No Status: Chronic The patient is chronically anticoagulated with Xarelto. He may resume his Xarelto today. Qualifiers: Atrial fibrillation type: chronic Qualified Code(s): I48.2 - Chronic atrial fibrillation (5) Essential (primary) hypertension Current Visit: No Status: Chronic The patient was counseled regarding atherosclerotic risk factor reduction. - Subjective Interval history: The patient is alert and comfortable. He reports he is tolerating a diet. He reports incisional pain the well-controlled. He denies any difficulty swallowing. He denies chest pain or shortness of breath. Vital Signs, Last 4 Hours Temp Pulse Resp BP Pulse Ox 01/06/19 07:19 97.5 F L 75 17 172/117 98 - Physical Examination General: Present: Conversant, No Apparent Distress HEENT: Present: Pupils equal Neck: Present: Other (Incision clean, dry and intact without erythema or drai nage, no pulsatile mass, expected postoperative ecchymosis is present.) Cardiac: Present: Normal S1 and S2 Lungs: Present: Normal Breath Sounds Neuro: Present: Alert and responsive, No focal deficits noted Vascular: Present: Normal capillary refill. Absent: Cyanosis, Edema Abdomen: Present: Soft Skin: Present: No rashes noted on visualized skin Results 01/06/19 01:15 01/06/19 01:15 Lab Results, Last 24 hours 01/05/19 01/06/19 01/06/19 16:42 01:15 01:15 WBC 9.7 11.6 H Hgb 14.5 13.3 Hct 45.1 42.0 Plt Count 229 219 Sodium 136 Potassium 4.1 Chloride 108 H Carbon Dioxide 18 L BUN 17 Creatinine 1.54 H Glucose 118 H Calcium 8.5 L Consult Discharge Plan - Plan Additional Instructions: May remove bandage and shower on 01/07/2019. Wash wound gently and pat to dry. No driving for [address] Goodwin at [phone] with questions or concerns. Referrals: Leonard Goodwin MD [Partnered Physician] - 01/22/19 10:10 am
[2019-01-06 11:51] VITALS: BP 123/74
--- NOTE | 2019-01-06 14:15 | Discharge Summary ---
Orders not resulted at time of discharge: Pending orders 01/05/19 14:32 Surgical Pathology [PTH] Routine Date of Encounter: 01/06/19 Time of Encounter: 14:12 - Discharge Diagnosis (1) Carotid artery stenosis, symptomatic Priority: Primary Status: Acute Qualifiers: Laterality: right Qualified Code(s): I65.21 - Occlusion and stenosis of right carotid artery (2) TIA (transient ischemic attack) Priority: Secondary Status: Acute (3) Essential (primary) hypertension Priority: Secondary Status: Chronic (4) DVT prophylaxis Priority: Secondary Status: Acute (5) CKD (chronic kidney disease) Priority: Secondary Status: Acute Qualifiers: Chronic kidney disease stage: stage 3 (moderate) Qualified Code(s): N18.3 - Chronic kidney disease, stage 3 (moderate) (6) Atrial fibrillation Priority: Secondary Status: Chronic Qualifiers: Atrial fibrillation type: chronic Qualified Code(s): I48.2 - Chronic atrial fibrillation Hospital course: Mr. Beaulieu is a 83 year old male with a PMHx of HTN, HLD, Chronic Afib, CKD, and recently diagnosed Rt sided carotid artery stenosis resulting in TIA symptoms. He presened with transient aphasia and slurred speech ans left sided weakness and numbness. Work up revealed 80-99% stenosis of right ICA. He underwent an uneventful endarterectomy and will be discharged home. Discharge discussed with: patient, family, nurse - Time Spent with Patient Total time spent providing and/or coordinating discharge services: Time spent: Greater than 30 minutes (35) - Discharge Medications Prescriptions: New Mag Hydrox/Al Hydrox/Simeth [Maalox] 15 ml PO Q6HR PRN #1 bottle PRN Reason: Dyspepsia MOM Conc [MILK OF MAGNESIA conc] 10 ml PO DAILY PRN #1 bottle PRN Reason: Constipation Oxycodone HCl/Acetaminophen [Percocet 5-325 mg Tablet] 1 each PO Q4HR PRN 4 Days #24 tablet PRN Reason: Pain Continued Losartan [Cozaar] 100 mg PO QPM Omeprazole Magnesium [Prilosec Otc] 20 mg PO QAM Rivaroxaban [Xarelto] 15 mg PO HS Gabapentin [Neurontin] 100 mg PO BID Carvedilol [Coreg] 25 mg PO BID Aspirin Enteric Coated [Aspirin EC] 81 mg PO DAILY #30 tablet. Atorvastatin [Lipitor] 80 mg PO HS #60 tablet Amlodipine Besylate 10 mg PO DAILY Cholecalciferol (Vitamin D3) [Vitamin D3] 4,000 unit PO QAM Home Medications: Losartan [Cozaar] 100 mg PO QPM 01/19/15 [History] Omeprazole Magnesium [Prilosec Otc] 20 mg PO QAM 09/19/18 [History] Rivaroxaban [Xarelto] 15 mg PO HS 09/19/18 [History] Carvedilol [Coreg] 25 mg PO BID 12/31/18 [History] Gabapentin [Neurontin] 100 mg PO BID 12/31/18 [History] Aspirin Enteric Coated [Aspirin EC] 81 mg PO DAILY #30 tablet. 01/01/19 [Rx] Atorvastatin [Lipitor] 80 mg PO HS #60 tablet 01/01/19 [Rx] Amlodipine Besylate 10 mg PO DAILY 01/05/19 [History] Cholecalciferol (Vitamin D3) [Vitamin D3] 4,000 unit PO QAM 01/05/19 [History] MOM Conc [MILK OF MAGNESIA conc] 10 ml PO DAILY PRN #1 bottle 01/06/19 [Rx] Mag Hydrox/Al Hydrox/Simeth [Maalox] 15 ml PO Q6HR PRN #1 bottle 01/06/19 [Rx] Oxycodone HCl/Acetaminophen [Percocet 5-325 mg Tablet] 1 each PO Q4HR PRN 4 Days #24 tablet 01/06/19 [Rx] Allergies/Adverse Reactions: Allergy/AdvReac Type Severity Reaction Status Date / Time No Known Allergies Allergy Verified 01/05/19 17:45 Date of admission: 01/05/19 10:55 Primary care physician: Esteban Moctezuma Consults: 01/04/19 14:08 Consult to Vascular Surgery [CONS] Stat Consulting Provider: Vascular Surgery [place] Reason for Consult: Carotid stenosis Time Notified: 14:08 Call Completed: Yes - Constitutional Vitals: Temp Pulse Resp BP Pulse Ox 36.4 C 74 15 123/74 96 01/06/19 11:48 01/06/19 11:48 01/06/19 11:48 01/06/19 11:48 01/06/19 11:48 General appearance: Present: A&O X 3 Exam: GENERAL: Not in distress. Alert and Oriented, pleasant HEENT: EOM, PERRLA MOUTH: Good oral hygiene NECK:No JVD, No lymph nodes. Has a clean longitudinal surgical scar on the right side of his neck with no evidence of bleeding. CHEST AND LUNGS: Normal breath sounds, no wheezes or crackles HEART: S1 and S2 normal, no murmurs ABDOMEN: Soft, nontender, no organomegaly GENITOURINARY: SKIN: Normal color, no rahses, no lesions EXTREMITIES: No deformity, no edema, no tenderness, no joint swelling or clubbing NEUROLOGICAL: Normal cognition, normal motor and sensory exam. - Patient Status Disposition: Home, Self-Care Condition: Good Functional capacity at discharge: independent ambulation Overall status at discharge: patient is progressing back to baseline - Discharge Instructions Follow Up With: Arelis Johnson CNP [Partnered Physician] - 01/08/19 1:00 pm Leonard Goodwin MD [Partnered Physician] - 01/22/19 10:10 am Additional Instructions: May remove bandage and shower on 01/07/2019. Wash wound gently and pat to dry. No driving for [address] Goodwin at [phone] with questions or concerns. - Diet and Activity Activity: increase activity as tolerated Diet: advance to your usual diet
--- NOTE | 2019-01-09 14:37 | Electrocardiograph Report ---
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
== END 2019-01-06 15:07 | disposition home or self-care (01) | DRG 39 ==
LOC: EMEROOARM 10:49 → 3BNU 10:49 → SUATTDRO 01-05 10:55 → 2NNU 01-05 14:19
PROVIDERS: ADMIT Internal Medicine; ATTEND Internal Medicine

== ENCOUNTER 2021-04-20 09:00 | Observation (INO) ==
[2021-04-20 09:53] LABS: Basophils % 0.3 %; Eosinophils % 0.1 %; Hematocrit 40.7 % (37.5-50.1); Immature Granulocytes % 1.3 % (0-4); Lymphocytes # 1.9 K/mcL (0.6-4.6); Lymphocytes % 19.6 %; Mean Corpuscular HGB Conc 29.5 g/dL (31.6-35.5); Mean Corpuscular Hemoglobin 22.6 pg (28.0-33.3); Mean Corpuscular Volume 76.5 fL (83.0-100.0); Mean Platelet Volume 8.5 fL (9.4-12.4); Monocytes # 0.4 K/mcL (0.0-1.3); Monocytes % 4.5 %; Platelet Count 260 K/mcL (140-400); Red Blood Count 5.32 M/mcL (4.19-5.50); Red Cell Distribution Width 21.3 % (11.5-14.5); Segmented Neutrophils % 74.2 %; White Blood Count 9.5 K/mcL (4.3-11.1)
[2021-04-20 10:04] LABS: INR 2.9; Prothrombin Time 31.6 Seconds (9.4-12.1)
[2021-04-20 10:07] LABS: Activated Partial Thrombo Time 43.9 Seconds (26.0-36.0)
[2021-04-20 10:17] LABS: Albumin 3.5 g/dL (3.5-5.7); Albumin/Globulin Ratio 1.1 (1.1-2.2); Bilirubin,Direct 0.1 mg/dL (0.0-0.2); Bilirubin,Indirect 0.5 mg/dL (0.0-1.0); Bilirubin,Total 0.6 mg/dL (0.3-1.0); Calcium 9.7 mg/dL (8.6-10.3); Globulin 3.1 g/dL (2.4-3.5); Potassium 4.3 mEq/L (3.5-5.1); Total Protein 6.6 g/dL (6.4-8.9); Troponin I 0.04 ng/mL (< 0.04)
[2021-04-20] MEDS ORDERED: Mag Hydrox/Al Hydrox/Simeth 30 ML UDC PO PRN (16:15)
[2021-04-20] MEDS ORDERED: Melatonin 3 MG TABLET PO PRN (16:15)
[2021-04-20] MEDS ORDERED: Ondansetron ODT 4 MG TAB.RAPDIS SL PRN (16:15)
[2021-04-20] MEDS ORDERED: MOM Conc 10 ML UD.LIQ PO PRN (16:15)
[2021-04-20] MEDS ORDERED: Naloxone 0.4 MG/ML INJ IVP PRN (16:15)
[2021-04-20] MEDS ORDERED: Perflutren Lipid Microsphere 1.3 ML in 0.9 % Sodium Chloride 8.7 ML IVP PRN (16:19)
[2021-04-20] MEDS ORDERED: Acetaminophen 325 MG TABLET PO PRN (16:20)
[2021-04-20] MEDS: Gabapentin 300 MG CAPSULE PO SCH (20:33)
[2021-04-20] MEDS: carvediloL 25 MG TABLET PO SCH (20:33)
[2021-04-20] MEDS ORDERED: *HR* Rivaroxaban 15 MG TABLET PO SCH (21:00)
[2021-04-21 02:09] LABS: Hematocrit 37.1 % (37.5-50.1); Hemoglobin 10.8 g/dL (12.9-16.9); Mean Corpuscular HGB Conc 29.1 g/dL (31.6-35.5); Mean Corpuscular Hemoglobin 22.5 pg (28.0-33.3); Mean Corpuscular Volume 77.1 fL (83.0-100.0); Mean Platelet Volume 8.4 fL (9.4-12.4); Platelet Count 232 K/mcL (140-400); Red Blood Count 4.81 M/mcL (4.19-5.50); Red Cell Distribution Width 20.9 % (11.5-14.5); White Blood Count 9.2 K/mcL (4.3-11.1)
[2021-04-21 02:24] LABS: Potassium 3.8 mEq/L (3.5-5.1)
[2021-04-21] MEDS ORDERED: *HR* Enoxaparin 40 MG/0.4 ML SYRINGE SQ SCH (06:00)
[2021-04-21 06:59] VITALS: BP 119/63; PULSE 76; TEMP 97.5
[2021-04-21] MEDS: carvediloL 25 MG TABLET PO SCH (08:50)
[2021-04-21] MEDS: Gabapentin 300 MG CAPSULE PO SCH (08:52)
[2021-04-21] MEDS ORDERED: Furosemide 40 MG TABLET PO SCH (09:00)
[2021-04-21 11:38] VITALS: O2SAT 97
== END 2021-04-21 11:57 | disposition home or self-care (01) ==
LOC: EMEROOARM 09:00 → 3ANU 09:00 → SUATTDRO 13:39 → 3ANU 15:00
PROVIDERS: ADMIT Family Medicine; ATTEND Registered Nurse

== ENCOUNTER 2021-04-21 14:06 | Observation (INO) ==
[2021-04-21] MEDS ORDERED: 0.9 % Sodium Chloride 1,000 ML IVC ONE (14:14)
[2021-04-21 14:50] LABS: Basophils % 0.3 %; Eosinophils # 0.1 K/mcL (0.0-0.6); Eosinophils % 0.6 %; Hemoglobin 11.9 g/dL (12.9-16.9); Immature Granulocytes % 1.2 % (0-4); Lymphocytes # 1.9 K/mcL (0.6-4.6); Lymphocytes % 20.3 %; Mean Corpuscular Hemoglobin 22.6 pg (28.0-33.3); Mean Corpuscular Volume 77.8 fL (83.0-100.0); Mean Platelet Volume 8.7 fL (9.4-12.4); Monocytes # 0.4 K/mcL (0.0-1.3); Monocytes % 4.4 %; Neutrophils # 6.9 K/mcL (1.6-8.9); Nucleated Red Blood Cells 0.2 /100 WBC (0); Platelet Count 261 K/mcL (140-400); Red Blood Count 5.27 M/mcL (4.19-5.50); Red Cell Distribution Width 21.6 % (11.5-14.5); Segmented Neutrophils % 73.2 %; White Blood Count 9.4 K/mcL (4.3-11.1)
[2021-04-21 14:57] LABS: INR 2.1; Prothrombin Time 22.8 Seconds (9.4-12.1)
[2021-04-21 15:00] LABS: Activated Partial Thrombo Time 34.8 Seconds (26.0-36.0)
[2021-04-21 15:11] LABS: Albumin 3.4 g/dL (3.5-5.7); Albumin/Globulin Ratio 1.1 (1.1-2.2); Bilirubin,Total 0.6 mg/dL (0.3-1.0); Calcium 9.3 mg/dL (8.6-10.3); Globulin 3.1 g/dL (2.4-3.5); Potassium 4.3 mEq/L (3.5-5.1); Total Protein 6.5 g/dL (6.4-8.9); Troponin I 0.03 ng/mL (< 0.04)
[2021-04-21] MEDS ORDERED: Ondansetron ODT 4 MG TAB.RAPDIS SL PRN (17:02)
[2021-04-21] MEDS ORDERED: MOM Conc 10 ML UD.LIQ PO PRN (17:02)
[2021-04-21] MEDS ORDERED: Naloxone 0.4 MG/ML INJ IVP PRN (17:02)
[2021-04-21] MEDS ORDERED: Mag Hydrox/Al Hydrox/Simeth 30 ML UDC PO PRN (17:02)
[2021-04-21] MEDS: 0.9 % Sodium Chloride 1,000 ML IVC SCH (20:32)
[2021-04-21] MEDS ORDERED: *HR* Rivaroxaban 15 MG TABLET PO SCH (21:00)
[2021-04-22 01:45] LABS: Bilirubin,Urine Negative (Negative); Blood,Urine Negative (Negative); Clarity,Urine Clear (Clear); Color,Urine Light-Yellow (Yellow); Glucose,Urine (UA) Normal (Normal); Ketones,Urine Negative (Negative); Leukocyte Esterase,Urine Negative (Negative); Nitrite,Urine Negative (Negative); PH,Urine 5.5 pH Units (5.0-8.0); Protein,Urine Trace mg/dL (Neg-Trace); Specific Gravity,Urine 1.022 (1.010-1.025); Urobilinogen,Urine Normal (Normal)
[2021-04-22 02:48] LABS: Hemoglobin 10.5 g/dL (12.9-16.9)
[2021-04-22 02:49] LABS: Hematocrit 35.2 % (37.5-50.1); Mean Corpuscular HGB Conc 29.8 g/dL (31.6-35.5); Mean Corpuscular Hemoglobin 23.5 pg (28.0-33.3); Mean Corpuscular Volume 78.7 fL (83.0-100.0); Mean Platelet Volume 8.5 fL (9.4-12.4); Platelet Count 220 K/mcL (140-400); Red Blood Count 4.47 M/mcL (4.19-5.50); Red Cell Distribution Width 21.1 % (11.5-14.5); White Blood Count 7.6 K/mcL (4.3-11.1)
[2021-04-22 03:15] LABS: Potassium 3.7 mEq/L (3.5-5.1)
[2021-04-22] MEDS ORDERED: carvediloL 6.25 MG TABLET PO SCH (08:00)
[2021-04-22 15:31] VITALS: BP 129/79; PULSE 99; TEMP 97.9; O2SAT 92
[2021-04-22] MEDS: 0.9 % Sodium Chloride 1,000 ML IVC SCH (16:09)
== END 2021-04-22 16:39 | disposition home or self-care (01) ==
LOC: EMEROOARM 14:06 → 3BNU 14:06 → SUATTDRO 17:54 → 3BNU 19:43
PROVIDERS: ADMIT Internal Medicine; ATTEND Registered Nurse

== ENCOUNTER 2021-06-10 11:55 | Observation (INO) ==
[2021-06-10 18:07] LABS: Basophils % 0.2 %; Eosinophils # 0.1 K/mcL (0.0-0.6); Eosinophils % 0.4 %; Hematocrit 43.2 % (37.5-50.1); Hemoglobin 13.4 g/dL (12.9-16.9); Immature Granulocytes % 1.2 % (0-4); Lymphocytes # 3.2 K/mcL (0.6-4.6); Lymphocytes % 25.4 %; Mean Corpuscular Hemoglobin 27.5 pg (28.0-33.3); Mean Corpuscular Volume 88.5 fL (83.0-100.0); Mean Platelet Volume 8.6 fL (9.4-12.4); Monocytes # 0.6 K/mcL (0.0-1.3); Neutrophils # 8.5 K/mcL (1.6-8.9); Nucleated Red Blood Cells 0.2 /100 WBC (0); Platelet Count 214 K/mcL (140-400); Red Blood Count 4.88 M/mcL (4.19-5.50); Red Cell Distribution Width 25.2 % (11.5-14.5); Segmented Neutrophils % 67.8 %; White Blood Count 12.5 K/mcL (4.3-11.1)
[2021-06-10 18:17] LABS: INR 1.5; Prothrombin Time 16.5 Seconds (9.4-12.1)
[2021-06-10 18:24] LABS: Calcium 9.3 mg/dL (8.6-10.3); Potassium 3.5 mEq/L (3.5-5.1)
[2021-06-10 18:37] LABS: Anisocytosis 3+ (Not Present); Platelet Estimate Normal (Normal)
[2021-06-10] MEDS ORDERED: *HR* Rivaroxaban 15 MG TABLET PO SCH (21:30)
[2021-06-10] MEDS ORDERED: Ondansetron 4 MG/2 ML VIAL IVP PRN (21:30)
[2021-06-10] MEDS ORDERED: Naloxone 0.4 MG/ML INJ IVP PRN (21:30)
[2021-06-10] MEDS ORDERED: Acetaminophen 325 MG TABLET PO PRN (21:30)
[2021-06-10 22:30] LABS: Bilirubin,Urine Negative (Negative); Blood,Urine Negative (Negative); Clarity,Urine Clear (Clear); Color,Urine Light-Yellow (Yellow); Glucose,Urine (UA) Normal (Normal); Ketones,Urine Negative (Negative); Leukocyte Esterase,Urine Negative (Negative); Mucus,Urine Few per lpf (None-Few); Nitrite,Urine Negative (Negative); PH,Urine 5.5 pH Units (5.0-8.0); Protein,Urine 50 mg/dL (Neg-Trace); RBC,Urine 0-3 per hpf (0-3); Specific Gravity,Urine 1.023 (1.010-1.025); Squamous Epithelial Cell,Urine Few per hpf (None-Few); Urobilinogen,Urine Normal (Normal); WBC,Urine 0-3 per hpf (0-3)
[2021-06-11 03:04] LABS: INR 2.1
[2021-06-11 03:06] LABS: % Iron Saturation 7 % (20-55); Activated Partial Thrombo Time 36.9 Seconds (26.0-36.0); Hematocrit 36.7 % (37.5-50.1); Iron 24 mcg/dL (65-175); Mean Corpuscular HGB Conc 30.8 g/dL (31.6-35.5); Mean Corpuscular Hemoglobin 27.4 pg (28.0-33.3); Mean Corpuscular Volume 89.1 fL (83.0-100.0); Mean Platelet Volume 9.1 fL (9.4-12.4); Platelet Count 182 K/mcL (140-400); Red Blood Count 4.12 M/mcL (4.19-5.50); Red Cell Distribution Width 24.7 % (11.5-14.5); Transferrin 230 mg/dL (203-362); White Blood Count 10.3 K/mcL (4.3-11.1)
[2021-06-11 03:07] LABS: Calcium 8.6 mg/dL (8.6-10.3); Chol/HDL Ratio 6.2 (0-4.9); Magnesium 1.9 mg/dL (1.6-2.6); Potassium 3.5 mEq/L (3.5-5.1)
[2021-06-11 03:11] LABS: Troponin I 0.04 ng/mL (< 0.04)
[2021-06-11 03:12] LABS: Hemoglobin 11.3 g/dL (12.9-16.9)
[2021-06-11 03:22] LABS: Ferritin 46 ng/mL (20-250)
[2021-06-11 03:28] LABS: Folate 15.7 ng/mL (3.0-16.0)
[2021-06-11 03:46] LABS: Vitamin B12 > 1500 pg/mL (250-1100)
[2021-06-11] MEDS ORDERED: carvediloL 6.25 MG TABLET PO SCH (08:00)
[2021-06-11 09:00] LABS: Estimated Average Glucose 114 mg/dl; Hemoglobin A1C 5.6 %
[2021-06-11] MEDS ORDERED: Ascorbic Acid 500 MG TABLET PO SCH (09:00)
[2021-06-11] MEDS ORDERED: Cyanocobalamin (B-12) 1,000 MCG TABLET PO SCH (09:00)
[2021-06-11] MEDS ORDERED: Cholecalciferol (D-3) 1,000 UNIT (25MCG) TABLET PO SCH (09:00)
[2021-06-11] MEDS ORDERED: Furosemide 20 MG TABLET PO SCH (09:00)
[2021-06-11 11:22] LABS: Hematocrit 35.4 % (37.5-50.1)
[2021-06-11 15:15] VITALS: BP 133/84; PULSE 110; TEMP 97.5; O2SAT 98
== END 2021-06-11 17:55 | disposition home or self-care (01) ==
LOC: EMEROOARM 11:55 → 3BNU 11:55
PROVIDERS: ADMIT Internal Medicine; ATTEND Internal Medicine